=== PATIENT | male | born 1955 | race African-American/Black ===

== ENCOUNTER 2019-12-17 16:19 | Emergency (ER) | payer OTHER ==
[~2019-12-17] VITALS: Ht 190 cm; Wt 83.0 kg
--- NOTE | 2019-12-17 16:36 | NUR ---
SAI ALANIZ GEARMAN IN TALKING TO THE PT AT THIS TIME.
--- NOTE | 2019-12-17 16:55 | NUR ---
DENIES SOA. PULSE OX 97% ROOM AIR.
--- NOTE | 2019-12-17 16:59 | NUR ---
IN TALKING TO THE PT AT THIS TIME.
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
--- NOTE | 2019-12-17 17:18 | NUR ---
DR NOTIFIED OF CONTINUED HYPERTENSION OF 221/116. PT STATES HE STOPPED TAKING HIS BP MEDS BECAUSE THEY MADE HIM SLEEPY.
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
[2019-12-17] MEDS ORDERED: meTOprolol 5 MG/5 ML (LOPRESSOR) VIAL IV ONE (17:30)
--- NOTE | 2019-12-17 17:35 | Diagnostic Imaging Report ---
PROCEDURE: CT chest without contrast. TECHNIQUE: Multiple contiguous axial images were obtained through the chest without the use of intravenous contrast. Auto Exposure Controls were utilized during the CT exam to meet ALARA standards for radiation dose reduction. INDICATION: Emphysema. FINDINGS: There is a large right apical bulla with some other small bullae in the right upper lobe. There are no effusions or pneumothoraces. There is minimal calcific atherosclerosis of the aorta. IMPRESSION: Apical emphysematous change with large right apical bulla. There is no pneumothorax. Emphysematous change in left upper lobe. Dictated by: Dictated on workstation # [id number]
--- NOTE | 2019-12-17 17:38 | NUR ---
PT'S UPDATED BY PHONE.
--- NOTE | 2019-12-17 17:55 | NUR ---
IN TALKING TO THE PT AT THIS TIME.
--- NOTE | 2019-12-17 17:58 | NUR ---
NOTIFIED HE WOULD BE READY TO BE PICKED UP SOON.
[2019-12-17] MEDS ORDERED: cloNIDine 0.1 MG (CATAPRES) TAB PO ONE (18:00)
[2019-12-17] MEDS ORDERED: LOSA1TAB20 PO (18:01)
[2019-12-17] MEDS ORDERED: CLON0.1T PO (18:01)
--- NOTE | 2019-12-17 18:03 | NUR ---
BP REMAINS HIGH 224/115. PT STATES HE WANTS TO GO HOME. HIS BP IS ALWAYS HIGH AND HE QUIT TAKING HIS BP MEDS YEARS AGO. EDUCATION GIVEN ON HYPERTENSION AND THE NEED TO GET HIS NEW SCRIPTS FILLED AND FOLLOW UP WITH HIS PCP.
[2019-12-17 18:07] VITALS: BP 224/115
== END 2019-12-17 18:07 | disposition home or self-care (01) ==
LOC: ER FS 16:20
DX: S16.1XXA Strain of muscle, fascia and tendon at neck level, initial encounter (principal); I10 Essential (primary) hypertension; J43.8 Other emphysema; F17.200 Nicotine dependence, unspecified, uncomplicated; V49.9XXA Car occupant (driver) (passenger) injured in unspecified traffic accident, initial encounter
CPT/HCPCS: 71250; 72125